=== PATIENT | male | born 1980 | race Caucasian/White ===

== ENCOUNTER 2020-05-19 11:50 | Outpatient (CLI) | payer OTHER | END 2020-05-19 23:59 | disposition home or self-care (01) | LOC: COV 11:50 | PROVIDERS: ATTEND Family Medicine | DX: Z20.828 Contact with and (suspected) exposure to other viral communicable diseases (principal) ==

== ENCOUNTER 2020-05-27 15:39 | Outpatient (CLI) | payer OTHER ==
--- NOTE | 2020-05-27 16:08 | SLEEP CARE CONSULTATION ---
Information from patient questionnaire entered by Tiffany Rajput. I have reviewed and concur with the information entered by Tiffany Rajput. This document represents the service I personally performed and the decisions made by me, Tasneem Lee MD, [facility]. History of Present Illness Service Date and Time: 05/27/2020 1539 Reason for Visit: New patient Chief Complaint: reports: Snoring, Observed pauses in breathing, Fatigue, Frequent awakenings at night Duration of Symptoms: 10 YEARS Usual bedtime: 2200 Time it takes to fall asleep: 30 minutes or less Snores at night: Yes Observed to quit breathing while asleep: Yes Sleeps alone due to snoring: No Number of times waking at night: 2-3 Reasons for waking at night: reports: Other (light sleeper, sounds wake me) Toss, Turn, or Twitch while sleeping: Yes Recalls having dreams: Yes (rarely) Usually gets out of bed at: 0400 Feels refreshed in the morning: Yes Morning headache: No Sleepy or fatigued during the day: Yes Ever fallen asleep while driving: No Takes day naps: No Dreams during day naps: No Prior sleep studies: No Additional HPI information: I had the pleasure of seeing Mr. Hager today regarding the possibility of him havi ng a sleep disorder. As you know, he is a 39 year old gentleman who complains of not sleeping much and his has seen him stop breathing at night. He also snores loudly. During the day he complains of feeling tired and sleepy. He has hypertension and leg swelling. 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 Patient is and lives in [place]. Have you smoked in the past 12 months: No Cigarettes per day (20/pack): 5 Years of smokin Quit date: 1998 Smoking Pack Years: 0.4 Alcohol use: Yes Alcohol amount and frequency: 3-4 every day Caffeine use: Yes Caffeine amount and frequency: 20oz once Family History Family history of sleep disordered breathing: No Allergies and Home Medications Drug allergies reviewed: Yes Home medication list reviewed: Yes Review of Systems Weight gain over past 5 years: 15 Cardiovascular: reports: high blood pressure Respiratory: denies: shortness of breath, wheeze, sputum production, chronic cough, other Gastrointestinal: denies: heartburn, difficulty swallowing, nausea, vomitting, diarrhea, abdominal pain, other Urinary: denies: incontinence, frequency, urgency, impotence, other Neurological: denies: headaches, seizure, head trauma, disorientation, speech dysfunction, gait or balance problems, fainting or unconsciousness, other Ear/Nose/Throat: reports: hoarseness, wisdom teeth removed Endocrine: denies: thyroid disease, history of goiter, sluggishness, too hot or cold, excessive thirst, increased appetite, increased urination, unexplained weakness, other Musculoskeletal: reports: back pain Immunologic: denies: sneezing, rash, itching, allergies to food or environment, other Physical Exam Vital signs obtained and entered by: Detailed physical exam was not performed to comply with the COVID-19 precau Height: 5 ft 10 in Weight: 285 lb Body Mass Index: 40.8 BMI Classification: Morbidly Obese Impression and Plan IMPRESSION: 1. Obstructive Sleep Apnea-Hypopnea Syndrome, as suggested by history of loud and irregular snoring, observed cessation of breath while asleep, and daytime hypersomnolence. Narrow oropharynx and obesity are common predisposing factors for obstructive sleep apnea-hypopnea syndrome. Untreated obstructive sleep apnea can also cause hypertension. Pathophysiology of sleep-disordered breathing was discussed. I recommend proceeding to polysomnography to confirm the diagnosis and to assess severity. If he has significant sleep disordered breathing, a manual CPAP titration study will also be performed to find the optimal treatment pressure. I informed the patient of what the sleep studies involve and after some discussion, he agreed to proceed. Plan: 1. Schedule an in-laboratory polysomnography and possibly a manual CPAP t itration study 2. Avoid long distance driving or when feeling sleepy. 3. Avoid alcohol, sedative and muscle relaxant around bedtime. 4. Attempt to lose weight. 5. Return in 1 to 2 weeks after the study to discuss results and initiate therapy. Visit Type: In Office Time Spent with Patient (minutes): 15 Provider Statement: I spent 100% of the Face to Face Visit with the patient with greater than 50% spent counseling the patient and coordination of care.
== END 2020-05-27 15:40 | disposition home or self-care (01) ==
LOC: SC 15:39
PROVIDERS: ATTEND Internal Medicine Pulmonary Disease
DX: G47.10 Hypersomnia, unspecified (principal); R06.81 Apnea, not elsewhere classified; R06.83 Snoring; E66.01 Morbid (severe) obesity due to excess calories; Z68.41 Body mass index [BMI] 40.0-44.9, adult
CPT/HCPCS: 99203; 99212

== ENCOUNTER 2020-09-23 19:30 | Outpatient (CLI) | payer OTHER | END 2020-09-23 23:59 | LOC: SC 19:30 | PROVIDERS: ATTEND Internal Medicine Pulmonary Disease | DX: G47.33 Obstructive sleep apnea (adult) (pediatric) (principal); E66.01 Morbid (severe) obesity due to excess calories; Z68.41 Body mass index [BMI] 40.0-44.9, adult | CPT/HCPCS: 95806 ==

== ENCOUNTER 2021-03-06 08:14 | Outpatient (CLI) | payer OTHER ==
--- NOTE | 2021-03-06 08:43 | SLEEP CARE CONSULTATION ---
Information from patient questionnaire entered by Betty Canales. I have reviewed and concur with the information entered by Betty Canales. This document represents the service I personally performed and the decisions made by , Yvonne Reed ARNP. History of Present Illness Service Date and Time: 03/06/2021813 Initial [place] Sleepiness Scale score: 5 (in 2020) Current [place] Sleepiness Scale score: 3 Additional HPI information: BRANDON GONZALES returns with spouse for follow up and results of the recently performed polysomnography. I explained the pathophysiology behind obstructive sleep apnea. We then spent quite a bit of time discussing different treatment options. For mild obstructive sleep apnea, surgery and oral appliance are alternatives to nasal CPAP therapy but in moderate or severe cases, nasal CPAP is the most effective and reliable treatment. Because apnea is primarily in supine position, then positional management therapy could be effective. Methods discussed such as positioning with pillows, using a T-shirt with tennis balls in the back, and shown commercial products that have a pillow format on back to prevent supine sleep. I reviewed the impact of weight changes on sleep apnea and strongly recommended losing weight. After some discussion, the patient opted to go with the nasal CPAP therapy. Nasal autoCPAP set at 4-15 cmH20 will be ordered with rationale explained. A manual titration study will be ordered if unable to find optimal pressure with office adjustments. I explained how CPAP machine works with sample devices [employer] Dreamstation and [employer] [id number] and what to expect when using the machine. Using CPAP every night in order to get used to it was emphasized. Patient advised to put CPAP mask on before getting into bed so as not to fall asleep without CPAP. To assist acclimation to CPAP use, it could also be used for a short time during day while reading or watching TV. The patient was instructed to call the CPAP supplier to discuss any mechanical problem that may occur. If the mask given is uncomfortable or is difficult to keep on through the night even with adjustment, contact the CPAP supplier as many will replace with another mask style if notified before 30 days. If snoring or perceives is not getting enough air or too much air from the machine, notify this office. [facility] patient education PAP tips reviewed and given to patient. Patient counseled not drink alcohol less than 4 hours before bedtime as it can increase snoring and apnea. Patient was cautioned about risks of drowsy driving until sleepiness symptoms resolve. Sleep Study - Results Type of Sleep Study: Home sleep study Prior sleep studies: No Polysomnography/Home Sleep Study results: SLEEP TIME AND EFFICIENCY: The sleep study recording began at 10:12:30 PM and ended at 03:09:27 AM. Total recording time was 296.9 minutes. The total sleep time was 283.4 minutes. The sleep efficiency was 95.4 percent. The patient spent 173.8 minutes supine, and spent 109.6 minutes non-supine. The patients own estimate of sleep time was 5.00 hours. RESPIRATORY DATA: The AHI in this report is indexed to sleep time based on actigraphy. The AASM defines this as ANDRÉS. The AHI on this type 3 Home Sleep Study may understate the AHI determined on a type 1 or 2 study, since EEG is not monitored resulting in the inability to score non-desaturating hypopneas. Based on 4% Calculation: The AHI4% calculation of 51.2 per hour of recording time was based on a total of 116 scored apneas and 126 scored hypopneas with 4% desaturations. Supine AHI4%: 77.7 per hour. Non-supine AHI4%: 8.2 per hour. Oxygen Summary: Patient's baseline O2 saturation was 94.1 %. The patient spent 40.5 minutes at an oxygen saturation less than 90%, and 2.7 minutes less than 85%. The desaturation index was 51.2 events per hour sleep time. The lowest saturation was 80.3 %. SNORING: The percent of the study time spent snoring was 0.0 %. The Snoring Count was 0 . The Snoring Index was 0.0. PULSE RATE REVIEW: The mean heart rate was 72 beats per minute. The rate ranged from a low of 50 to a high of 120 beats per minute. DIAGNOSIS CODE: Obstructive Sleep Apnea ICD-10 G47.33 Findings were consistent with severe obstructive sleep apnea associated with moderate hypoxia, occurring mainlyduring supine sleep. Severe desaturations were noted. Allergies and Home Medications Home medication list reviewed: Yes (atorvastatin for cholesterol) Review of Systems Review of systems same as previous: Yes (no changes) Physical Exam Blood Pressure: 141/96 (has not taken AM meds) Cuff size: wrist Heart Rate: 78 O2 Saturation: 97 Height: 5 ft 10 in Weight: 272 lb Weight change since last visit: 13 lb loss Body Mass Index: 39.0 BMI Classification: Obese Impression and Plan 1. Obstructive Sleep Apnea-Hypopnea Syndrome, severe, with lowest oxygen saturation of 80.3%. Obviously this is the cause of the patients symptoms of unrefreshed sleep, and excessive daytime sleepiness. Positive pressure therapy could benefit his hypertension. As mentioned above, the patient will be started on nasal autoCPAP therapy with pressure set at 4-15 cmH2O. A manual titration study will be completed if unable to find optimal treatment pressure with office adjustments. Compliance guidelines also reviewed. A copy of compliance guidelines will be given for reference at check out. Because the apnea is more severe supine, I instructed to avoid sleeping supine using pillow positioning until able to start CPAP use. * Nasal auto CPAP therapy, pressure at 4-15 cm H2O. * Continue to lose weight. * Avoid alcohol consumption near bedtime. * Avoid supine sleep until using CPAP. * The patient is again cautioned about driving until sleepiness completely resolves. * Return one month after CPAP obtained. I will assess response to therapy and compliance at that time. Counseling Topics: Weight loss health impact Visit Type: In Office Time Spent with Patient (minutes): 24 Provider Statement: I spent 100% of the Face to Face Visit with the patient with greater than 50% spent counseling the patient and coordination of care.
[2021-03-06 08:44] VITALS: BP 141/96
== END 2021-03-06 08:15 | disposition home or self-care (01) ==
LOC: SC 08:14
PROVIDERS: ATTEND Nurse Practitioner Family
DX: G47.33 Obstructive sleep apnea (adult) (pediatric) (principal); E66.9 Obesity, unspecified; Z68.39 Body mass index [BMI] 39.0-39.9, adult
CPT/HCPCS: 99212; 99213

== ENCOUNTER 2021-05-06 15:30 | Outpatient (CLI) | payer OTHER ==
--- NOTE | 2021-05-06 15:54 | SLEEP CARE CONSULTATION ---
Information from patient questionnaire entered by Betty Canales. I have reviewed and concur with the information entered by Betty Canales. This document represents the service I personally performed and the decisions made by , Yvonne Reed ARNP. History of Present Illness Service Date and Time: 05/06/2021 1530 Previous diagnosis: Severe, Obstructive Sleep Apnea-Hypopnea Syndrome AHI: 51.2 (in 2019) Reason for follow up: first compliance Equipment type: CPAP Equipment obtained from: [employer] [address] (got initial supplies) Mask style: Nasal Backup mask available: No (will keep old mask when replaced) Last cushion change: 2 weeks [facility]: Yes [facility] Type of Sleep Study: Home sleep study HPI additional information: BRANDON GONZALES was diagnosed to have severe, AHI 51.2, obstructive sleep apnea- hypopnea syndrome and returned today for CPAP therapy first compliance follow- up. CPAP Compliance Data - Data Reviewed with Patient Average duration of nightly device use: 5 hr 3 min Compliance rate %: 76.7 Current pressure setting (cmH2O): 8-15 Humidity settin Heated hose settin Average residual AHI: 3.0 Average large leak: 2 min 54 sec Subjective Patient concerns: reports: nasal congestion (just one side). denies: aerophagia, mask discomfort, air blowing in eyes, mask leak noise, condensation in mask/hose, dry mouth, nose, throat, epistaxis, other Observed to snore while using device: No Current pressure setting perceived as: comfortable On therapy, patient: reports: sleeping better, awakening more refreshed, being more awake and alert during the day, more rested overall. denies: drowsiness while driving Initial [place] Sleepiness Scale score: 5 (in 2019) Current [place] Sleepiness Scale score: 5 Allergies and Home Medications Home medication list reviewed: Yes (no new meds) Review of Systems Review of systems same as previous: Yes (no changes) Physical Exam Heart Rate: 85 O2 Saturation: 98 Height: 5 ft 10 in Weight: 266 lb Body Mass Index: 38.1 BMI Classification: Obese Impression and Plan 1. Obstructive Sleep Apnea-Hypopnea Syndrome, severe, with good treatment compliance and good apnea control. On CPAP therapy, the patient has better sleep quality and is more rested overall. Patient has had some nasal congestion especially on his right nare that he has to work with to be able to get his nasal mask to work well. He has been doing well and is getting good improvement of his apneas. Nasal congestion can be reduced with increasing the CPAP humidity as shown on sample device. The heated hose can be adjusted higher if condensation with higher humidity setting. Saline nasal spray sample was also given to use prior to CPAP to clear nasal secretions and wash off any nasal al lergens to facilitate nasal breathing. He has no other issues with using the CPAP machine and has seen some positive effects with less fatigue during the day. I will follow-up with him in 3 months and change his pressure to 8-10 cmH2O to reflect those pressures he is using currently. He voiced understanding and agreement with plan of care. Patient's apnea severity and rationale for treatment to reduce apnea, improve sleep quality and reduce cardiovascular and cerebrovascular events was reviewed. I also reviewed the benefit of consistent device use of CPAP for hypertension. * Change auto CPAP pressure to 8-10 cmH2O * Notify me if snoring with mask or feeling that the pressure is too much or too little * Attempt to lose weight * Call this office if any problems using CPAP * Return for follow up in 3 months, or sooner if concerns arise Counseling Topics: Spare mask, Weight loss health impact Visit Type: In Office Time Spent with Patient (minutes): 16 Provider Statement: I spent 100% of the Face to Face Visit with the patient with greater than 50% spent counseling the patient and coordination of care.
== END 2021-05-06 15:31 | disposition home or self-care (01) ==
LOC: SC 15:30
PROVIDERS: ATTEND Nurse Practitioner Family
DX: G47.33 Obstructive sleep apnea (adult) (pediatric) (principal); E66.9 Obesity, unspecified; Z68.38 Body mass index [BMI] 38.0-38.9, adult
CPT/HCPCS: 99212

== ENCOUNTER 2021-08-04 15:26 | Outpatient (CLI) | payer OTHER ==
--- NOTE | 2021-08-04 16:14 | SLEEP CARE CONSULTATION ---
Information from patient questionnaire entered by Cheo Kulkarni. I have reviewed and concur with the information entered by Cheo Kulkarni. This document represents the service I personally performed and the decisions made by me, Yvonne Reed ARNP. History of Present Illness Service Date and Time: 08/04/2021 1526 Previous diagnosis: Severe, Obstructive Sleep Apnea-Hypopnea Syndrome AHI: 51.2 Reason for follow up: three month (followup - pressure change) Equipment type: CPAP Equipment obtained from: [employer] (getting supplies as needed) Mask style: Nasal Backup mask available: Yes (old mask) Last cushion change: 2 days ago Prior sleep studies: Yes Year and Where: 2019 - [facility] Type of Sleep Study: Home sleep study HPI additional information: BRANDON GONZALES was diagnosed to have severe, AHI 51.2, obstructive sleep apnea- hypopnea syndrome and returned today for CPAP therapy three month follow-up. CPAP Compliance Data - Data Reviewed with Patient Average duration of nightly device use: 5 h 43 min Compliance rate %: 93.3 Current pressure setting (cmH2O): 8-10 Humidity settin Heated hose setting: Off Average residual AHI: 2.7 Average large leak: 1 min 34 sec Subjective Patient concerns: denies: aerophagia, mask discomfort, air blowing in eyes, mask leak noise, condensation in mask/hose, nasal congestion, dry mouth, nose, throat, epistaxis, other Observed to snore while using device: No Current pressure setting perceived as: comfortable On therapy, patient: reports: sleeping better, awakening more refreshed, being more awake and alert during the day, more rested overall. denies: drowsiness while driving Initial [place] Sleepiness Scale score: 5 (in 2019) Current [place] Sleepiness Scale score: 8 Allergies and Home Medications Home medication list reviewed: Yes (no changes) Review of Systems Review of systems same as previous: Yes (no changes) Physical Exam Heart Rate: 74 O2 Saturation: 97 Height: 5 ft 10 in Weight: 271 lb Body Mass Index: 38.9 BMI Classification: Obese Impression and Plan 1. Obstructive Sleep Apnea-Hypopnea Syndrome, severe, with good treatment compliance and good apnea control. On CPAP therapy, the patient has better sleep quality and is more rested overall. Patient has been doing well with current pressures although sometimes at first it seems a little low. He has allergies so he has some nasal congestion but states it has improved since he started using the saline nasal spray at night. He is satisfied with current CPAP therapy and the pressures are comfortable. He does not want a change at this time. Patient's apnea severity and rationale for treatment to reduce apnea, improve sleep quality and reduce cardiovascular and cerebrovascular events was reviewed. I also reviewed the benefit of consistent device use of CPAP for hypertension. * Continue auto CPAP pressure at 8-10 cmH2O * Notify me if snoring with mask or feeling that the pressure is too much or too little * Attempt to lose weight * Call this office if any problems using CPAP * Return for follow up in 6 months, or sooner if concerns arise Counseling Topics: Spare mask, Weight loss health impact Visit Type: In Office Time Spent with Patient (minutes): 12 Provider Statement: I spent 100% of the Face to Face Visit with the patient with greater than 50% spent counseling the patient and coordination of care.
== END 2021-08-04 15:27 | disposition home or self-care (01) ==
LOC: SC 15:26
PROVIDERS: ATTEND Nurse Practitioner Family
DX: G47.33 Obstructive sleep apnea (adult) (pediatric) (principal); E66.9 Obesity, unspecified; Z68.38 Body mass index [BMI] 38.0-38.9, adult
CPT/HCPCS: 99212

== ENCOUNTER 2022-01-21 16:05 | Outpatient (CLI) | payer BC ==
[2022-01-21 16:36] VITALS: BP 145/97
--- NOTE | 2022-01-21 16:36 | SLEEP CARE CONSULTATION ---
Information from patient questionnaire entered by Russell Hirsch MA. I have reviewed and concur with the information entered by Russell Hirsch MA. This document represents the service I personally performed and the decisions made by , Yvonne Reed ARNP. History of Present Illness Service Date and Time: 01/21/2022 1605 Previous diagnosis: Severe, Obstructive Sleep Apnea-Hypopnea Syndrome AHI: 51.2 Reason for follow up: six month Equipment type: CPAP Equipment obtained from: [employer] (getting supplies as needed) Mask style: Nasal Backup mask available: No (will keep old mask when replaced) Last cushion change: 3-4 days ago Prior sleep studies: Yes Year and [facility]: 2019 [facility] Type of Sleep Study: Home sleep study HPI additional information: BRANDON GONZALES was diagnosed to have severe, AHI 51.2, obstructive sleep apnea- hypopnea syndrome and returned today for CPAP therapy six month follow-up. Sleep Study - Results Type of Sleep Study: Home sleep study Prior sleep studies: Yes Year and Where: 2019 - [facility] CPAP Compliance Data - Data Reviewed with Patient Average duration of nightly device use: 5 hours 44 minutes Compliance rate %: 94.2 Current pressure setting (cmH2O): 8-10 Humidity settin Heated hose settin Average residual AHI: 1.6 Average large leak: 2 minutes 36 seconds Subjective Patient concerns: denies: aerophagia, mask discomfort, air blowing in eyes, mask leak noise, condensation in mask/hose, nasal congestion, dry mouth, nose, throat, epistaxis Observed to snore while using device: No Current pressure setting perceived as: comfortable On therapy, patient: reports: sleeping better, awakening more refreshed, being more awake and alert during the day, more rested overall. denies: drowsiness while driving Initial [place] Sleepiness Scale score: 5 (in 2019) Current [place] Sleepiness Scale score: 5 (01/2022) Allergies and Home Medications Home medication list reviewed: Yes (no changes) Review of Systems Review of systems same as previous: Yes (no changes) Physical Exam Vital signs obtained and entered by: Zohra HIRSCH CMA [place] Blood Pressure: 145/97 (RIGHT, PULSE 79, RESP 18, ) Heart Rate: 81 O2 Saturation: 97 (PAPER) Height: 5 ft 10 in Weight: 269 lb (CLOTHES) Weight change since last visit: LOST 10 LBS, TRYING TO LOOSE. Body Mass Index: 38.5 BMI Classification: Obese Impression and Plan 1. Obstructive Sleep Apnea-Hypopnea Syndrome, severe, with good treatment compliance and good apnea control. On CPAP therapy, the patient has better sleep quality and is more rested overall. Patient is doing well with his CPAP machine. He states the pressure at start up seems a little bit low but otherwise there is no problem. I will increase his ramp starting pressure to 6 cm H2O to reduce this air hunger at the start of the night. He voiced understanding and agreement with this plan. Patient's apnea severity and rationale for treatment to reduce apnea, improve sleep quality and reduce cardiovascular and cerebrovascular events was reviewed. I also reviewed the benefit of consistent device use of CPAP for hypertension. 2. Obesity, unspecified. Patient has lost weight. Currently patients BMI is 38.9. Obesity increases the risk of apnea, CPAP pressure requirements and overall health risks especially cardiovascular and diabetes. Thus patient is advised to continue to try to lose weight. Weight loss can be done with reducing portion size, reducing refined foods and balancing content with vegetables, fruit and whole grain foods. In addition, patient encouraged to get regular exercise. The patient's CPAP pressure range should accommodate some weight loss. Symptoms to report for additional pressure adjustment discussed. * Continue auto CPAP pressure at 8-10 cmH2O * Increase ramp starting pressure to 6 cmH2O * Notify me if snoring with mask or feeling that the pressure is too much or too little * Continue to try to lose weight * Call this office if any problems using CPAP * Return for follow up in 1 year, or sooner if concerns arise Counseling Topics: Spare mask, Weight loss health impact Visit Type: In Office Time Spent with Patient (minutes): 20 Provider Statement: I spent 100% of the Face to Face Visit with the patient with greater than 50% spent counseling the patient and coordination of care.
== END 2022-01-21 16:06 | disposition home or self-care (01) ==
LOC: SC 16:05
PROVIDERS: ATTEND Nurse Practitioner Family
DX: G47.33 Obstructive sleep apnea (adult) (pediatric) (principal); E66.9 Obesity, unspecified; Z68.38 Body mass index [BMI] 38.0-38.9, adult
CPT/HCPCS: 99212; 99213

== ENCOUNTER 2022-03-15 08:00 | Outpatient (CLI) | payer BC | END 2022-03-15 23:59 | disposition home or self-care (01) | LOC: LAB.N 08:00 | PROVIDERS: ATTEND Registered Nurse | DX: Z20.822 Contact with and (suspected) exposure to COVID-19 (principal) ==

== ENCOUNTER 2023-01-20 14:06 | Outpatient (CLI) | payer BC ==
--- NOTE | 2023-01-20 14:55 | SLEEP CARE CONSULTATION ---
Information from patient questionnaire entered by Mirna Alarcon. I have reviewed and concur with the information entered by Mirna Alarcon. This document represents the service I personally performed and the decisions made by me, Yvonne Reed ARNP. History of Present Illness Service Date and Time: 01/20/2023 1406 Previous diagnosis: Severe, Obstructive Sleep Apnea-Hypopnea Syndrome AHI: 51.2 Reason for follow up: annual (LAST SEEN 01/26) Equipment type: CPAP (SMITH Dreamstation 2 s/u 03/2021) Equipment obtained from: [facility] (getting supplies as needed) Mask style: Nasal Mask brand: Respironics (Dreamwear) Backup mask available: Yes (old mask) Last cushion change: 1 week Prior sleep studies: Yes Year and Where: 2019 - [facility] Type of Sleep Study: Home sleep study HPI additional information: BRANDON GONZALES was diagnosed to have severe, AHI 51.2, obstructive sleep apnea- hypopnea syndrome and returned today for CPAP therapy annual follow-up. Sleep Study - Results Type of Sleep Study: Home sleep study Prior sleep studies: Yes Year and Where: 2019 - [facility] CPAP Compliance Data - Data Reviewed with Patient Average duration of nightly device use: 6 HRS 49 MIN 10SEC Compliance rate %: 99.4 (07/23/22-01/18/23; 179/180 days used) Current pressure setting (cmH2O): 8-10 Average residual AHI: 0.8 Central apnea: 0 Obstructive apnea: 0.1 Hypopnea: 0.7 Subjective Missed days of use due to: reports: travel Patient concerns: denies: aerophagia, mask discomfort, air blowing in eyes, mask leak noise, condensation in mask/hose, nasal congestion, dry mouth, nose, t hroat, epistaxis Observed to snore while using device: No Current pressure setting perceived as: comfortable On therapy, patient: reports: sleeping better, awakening more refreshed, being more awake and alert during the day, more rested overall. denies: drowsiness while driving Initial [place] Sleepiness Scale score: 5 (in 2019) Current [place] Sleepiness Scale score: 6 (01/20/23) Allergies and Home Medications Known drug allergies: No Drug allergies reviewed: Yes Home medication list reviewed: No (Dexamethasone) Review of Systems Review of systems same as previous: No (Lichonoid mucositis on tongue) Physical Exam Vital signs obtained and entered by: MIRNA Acevedo MA Blood Pressure: 134/82 (LEFT ARM) Cuff size: regular Heart Rate: 81 O2 Saturation: 97 Height: 5 ft 10 in Weight: 288 lb 12.8 oz Weight change since last visit: 19 lb gain Body Mass Index: 41.4 BMI Classification: Morbidly Obese Impression and Plan 1. Obstructive Sleep Apnea-Hypopnea Syndrome, severe, with good treatment compliance and good apnea control. On CPAP therapy, the patient has better sleep quality and is more rested overall. Patient has significant improvement of their sleep apnea and is satisfied with current CPAP therapy. Patient denies problems with oral dryness, nasal congestion, epistaxis, skin irritation or aerophagia. Patient's apnea severity and rationale for treatment to reduce apnea, improve sleep quality and reduce cardiovascular and cerebrovascular events was reviewed. I also reviewed the benefit of consistent device use of CPAP for hypertension. 2. Obesity, unspecified. Currently patients BMI is 41.4. Obesity increases the risk of apnea, CPAP pressure requirements and overall health risks especially cardiovascular and diabetes. Thus patient is advised to lose weight. The patient's CPAP pressure range should accommodate some weight loss. Symptoms to report for additional pressure adjustment discussed. * Continue auto CPAP pressure at 6-10 cmH2O * Update supplies * Notify me if snoring with mask or feeling that the pressure is too much or too little * Attempt to lose weight * Call this office if any problems using CPAP * Return for follow up in 1 year, or sooner if concerns arise Counseling Topics: Spare mask, Weight loss health impact Visit Type: In Office Time Spent with Patient (minutes): 14 Provider Statement: I spent 100% of the Face to Face Visit with the patient with greater than 50% spent counseling the patient and coordination of care.
[2023-01-20 14:57] VITALS: BP 134/82
== END 2023-01-20 14:07 | disposition home or self-care (01) ==
LOC: SC 14:06
PROVIDERS: ATTEND Nurse Practitioner Family
DX: G47.33 Obstructive sleep apnea (adult) (pediatric) (principal); E66.01 Morbid (severe) obesity due to excess calories; Z68.41 Body mass index [BMI] 40.0-44.9, adult
CPT/HCPCS: 99212